=== PATIENT | female | born 1970 | race Caucasian/White ===

== ENCOUNTER 2018-07-17 10:00 | Emergency (ER) | payer MEDICARE ==
[~2018-07-17] VITALS: Ht 162.6 cm; Wt 96.2 kg
[~2018-07-17 10:00] MED LIST: ALBU90OI6 INH; ALPR.5 PO; AMLO10 PO; ASPI81CH PO; ATOR40TA PO; Bupropion Xl150 MG PO; CLON1 PO; COMBIVENT RESPIM4 GM INH; FLUC150A; FURO20 PO; LISI5; MELO7.5 PO; NITR.4SL; NYST100000; PRAV20 PO; RISP.5 PO; TRAZ150T57 PO; Zestril40 MG PO
[2018-07-17] MEDS ORDERED: Prednisone20 MG PO (11:20)
[2018-07-17] MEDS ORDERED: Cheratussin AC118 ML PO (11:20)
[2018-07-17] MEDS ORDERED: Mucinex1200 MG PO (11:20)
[2018-07-17] MEDS ORDERED: Flonase 0.05% N16 GM (11:20)
[2018-07-17 11:43] LABS: Influenza A Negative (NEGATIVE); Influenza B Negative (NEGATIVE)
== END 2018-07-17 12:04 | disposition home or self-care (01) ==
LOC: ER 10:00
PROVIDERS: Physician Assistant
DX: J20.9 Acute bronchitis, unspecified (principal); F41.9 Anxiety disorder, unspecified; E78.00 Pure hypercholesterolemia, unspecified; F17.210 Nicotine dependence, cigarettes, uncomplicated; I10 Essential (primary) hypertension; Z88.1 Allergy status to other antibiotic agents; Z79.82 Long term (current) use of aspirin; Z79.899 Other long term (current) drug therapy
CPT/HCPCS: 71046; 87804; 94640; 99284-25

== ENCOUNTER 2018-09-06 07:29 | Day surgery (SDC) | payer MEDICARE, OTHER ==
[~2018-09-06 07:29] MED LIST changes: +Cheratussin AC118 ML PO; +Flonase 0.05% N16 GM; +Mucinex1200 MG PO; +Prednisone20 MG PO
== END 2018-09-07 22:59 | disposition home or self-care (01) ==
LOC: MOI US 07:29 → MOI MAM 07:30 → MOI US 07:30
DX: N60.22 Fibroadenosis of left breast (principal)
CPT/HCPCS: 19083; 77065; 88305; 88342; A4648

== ENCOUNTER → 2018-09-19 | Outpatient (CLI) | payer MEDICARE, OTHER ==
[2018-09-24 15:06] LABS: CHLAMYDIA TRACHOMATIS, NAA Negative (Negative); HPV 16 Negative (Negative); HPV 18 Negative (Negative); HPV OTHER HR TYPES Positive (Negative); NEISSERIA GONORRHOEAE, NAA Negative (Negative)
== END | disposition home or self-care (01) ==
LOC: LAB SHORT 11:51 → LAB 11:51
PROVIDERS: Obstetrics & Gynecology
DX: Z01.419 Encounter for gynecological examination (general) (routine) without abnormal findings (principal); Z11.3 Encounter for screening for infections with a predominantly sexual mode of transmission
CPT/HCPCS: 87491; 87591; 87624; 87625; G0123